=== PATIENT | female | born 1990 | race Caucasian/White ===

== ENCOUNTER 2025-02-18 12:41 | Outpatient (CLI) | payer OTHER ==
[~2025-02-18 12:41] MED LIST: PRENATAL1 TAB PO
== END 2025-02-18 12:45 | disposition home or self-care (01) ==
LOC: PRENATAL 12:41
PROVIDERS: ATTEND Obstetrics & Gynecology Maternal & Fetal Medicine
DX: O36.80X0 Pregnancy with inconclusive fetal viability, not applicable or unspecified (principal); Z36.82 Encounter for antenatal screening for nuchal translucency; O09.529 Supervision of elderly multigravida, unspecified trimester; Z3A.13 13 weeks gestation of pregnancy

== ENCOUNTER 2025-04-06 12:45 | Outpatient (CLI) | payer OTHER | END 2025-04-06 12:46 | disposition home or self-care (01) | LOC: PRENATAL 12:45 | PROVIDERS: ATTEND Obstetrics & Gynecology Maternal & Fetal Medicine | DX: O44.00 Complete placenta previa NOS or without hemorrhage, unspecified trimester (principal); O09.529 Supervision of elderly multigravida, unspecified trimester; Z3A.21 21 weeks gestation of pregnancy ==

== ENCOUNTER → 2025-06-28 09:57 | Outpatient (CLI) | payer OTHER | END | disposition home or self-care (01) | LOC: PRENATAL 09:57 | PROVIDERS: ATTEND Obstetrics & Gynecology Maternal & Fetal Medicine | DX: O26.849 Uterine size-date discrepancy, unspecified trimester (principal); O36.8199 Decreased fetal movements, unspecified trimester, other fetus; Z3A.33 33 weeks gestation of pregnancy ==

== ENCOUNTER 2025-08-12 09:42 | Inpatient (IN) | payer OTHER ==
[~2025-08-12] VITALS: Ht 167.6 cm; Wt 78.9 kg
[2025-08-23] VITALS (11 sets, daily range): BP systolic 123–146; BP diastolic 61–96
[2025-08-23] MEDS ORDERED: RINGERS SOLUTION,LACTATED 1,000 ML IV SCH (03:00)
[2025-08-23] MEDS ORDERED: ADULT LOW DOSE81 M1 PO (03:17)
[2025-08-23 04:39] LABS: BASO % 0.8 % (0.1-1.2); EOS # 0.20 (0.04-0.54); EOS % 2.1 % (0.7-7.0); LYMPH # 2.35 (1.18-3.74); LYMPH % 24.1 % (19.3-53.1); MEAN PLATELET VOLUME 10.50 fl (9.4-12.4); MONO # 0.72 (0.24-0.82); MONO % 7.4 % (4.7-12.5); NEUT # 6.35 (1.56-6.13); NEUT % 65.1 % (34.0-71.1); RED CELL DISTRIBUTION WIDTH 14.4 % (11.6-14.4)
[2025-08-23 04:40] LABS: URINE APPEARANCE Clear; URINE BILIRRUBIN Negative (NEGATIVE); URINE BLOOD Negative; URINE COLOR Yellow; URINE GLUCOSE Negative (NEGATIVE); URINE KETONE Negative (NEGATIVE); URINE LEUKOCYTE Large; URINE NITRATE Negative; URINE PROTEIN Negative (NEGATIVE); URINE UROBILINOGEN 0.2 E.U./dl
[2025-08-23 04:43] LABS: URINE BACTERIA 3418.4 uL (0.0-1933); URINE EPITHELIAL CELLS 67.9 uL (0.0-38.8); URINE RBC 2.4 uL (0.0-20.8); URINE WBC 38.3 uL (0.0-23.2)
[2025-08-23 05:00] LABS: URINE CAST 0.00 uL (0.0-1.40)
[2025-08-23 05:06] LABS: ALT/SGPT 16.0 U/L (12-78); AST/SGOT 23.0 U/L (15-37); BILIRUBIN TOTAL 0.33 mg/dL (0.3-1.2); BUN CREA RATIO 13.0 (7.0-25.0); CREATININE SERUM 0.69 mg/dL (0.55-1.02); GFR 96.27; GLOBULINA 3.4 G/DL (2.4-3.5); GLUCOSE FASTING 83.0 mg/dL (65-100); OSMOLALITY SERUM 277.0 MOSM/KG (275-295)
[2025-08-23 05:07] LABS: INR < 0.93
[2025-08-23] MEDS ORDERED: OXYTOCIN 500 ML IV SCH (07:00)
[2025-08-23] MEDS ORDERED: MORPHINE SULFATE 4 MG/ML CARTRIDGE IV STA (08:43)
[2025-08-23] MEDS ORDERED: OXYTOCIN 20 UNITS/1000ML RL PIGGYBAG IV ONE (10:39)
[2025-08-23] MEDS ORDERED: ERYTHROMYCIN BASE OPHT 1GM EACH TUBE OP ONE ×2 (10:39→11:30)
[2025-08-23] MEDS ORDERED: LIDOCAINE HCL 1% 10ML VIAL ONE (10:40)
[2025-08-23] MEDS ORDERED: CHLORHEXIDINE GLUCONATE 120 ML BOTTLE TOP ONE ×2 (10:40→11:30)
[2025-08-23] MEDS ORDERED: ACETAMINOPHEN 500 MG GEL..CAP PO PRN (11:30)
[2025-08-23] MEDS ORDERED: OXYTOCIN 1,000 ML IV SCH (11:30)
[2025-08-23] MEDS ORDERED: HYDROCORTISONE 2.5% 30 GM TUBE RECTAL SCH (13:00)
[2025-08-23] MEDS ORDERED: BENZOCAINE/MENTHOL 90 ML BOTTLE TOP SCH ×2 (13:00→13:30)
[2025-08-24] VITALS: BP 134/85
[2025-08-24 02:42] LABS: BASO % 0.5 % (0.1-1.2); EOS # 0.10 (0.04-0.54); EOS % 0.6 % (0.7-7.0); LYMPH # 2.22 (1.18-3.74); LYMPH % 12.7 % (19.3-53.1); MEAN PLATELET VOLUME 10.80 fl (9.4-12.4); MONO # 0.76 (0.24-0.82); MONO % 4.3 % (4.7-12.5); NEUT # 14.31 (1.56-6.13); NEUT % 81.6 % (34.0-71.1); RED CELL DISTRIBUTION WIDTH 14.6 % (11.6-14.4)
[2025-08-24 09:11] VITALS: BP 131/86
[2025-08-24 15:35] VITALS: BP 128/82
[2025-08-25] VITALS: BP 132/78
[2025-08-25 08:00] VITALS: BP 140/87
== END 2025-08-25 12:13 | disposition home or self-care (01) | DRG 807 ==
LOC: OB/GYN 09:42 → LDR 08-23 02:56 → OB/GYN 08-23 02:56
PROVIDERS: ADMIT Specialist; ATTEND Specialist
PROC: 10E0XZZ Delivery of Products of Conception, External Approach (ICD-10-PCS; principal; 2025-08-23)
PROC: 4A1HXCZ Monitoring of Products of Conception, Cardiac Rate, External Approach (ICD-10-PCS; 2025-08-23)
DX: O69.81X0 Labor and delivery complicated by cord around neck, without compression, not applicable or unspecified (principal); Z37.0 Single live birth; Z3A.40 40 weeks gestation of pregnancy